=== PATIENT | female | born 1935 | race Caucasian/White ===

== ENCOUNTER 2018-05-11 07:04 | Inpatient (IN) | payer MEDICARE ==
[~2018-05-11] VITALS: Ht 165.1 cm; Wt 69.0 kg
[2018-05-11] MEDS ORDERED: FENTANYL PF 100 MCG/2ML ONE ×2 (07:43→19:19)
[2018-05-11] MEDS ORDERED: ONDANSETRON ODT 4 MG ONE (07:44)
[2018-05-11 07:45] LABS: BASOPHILS # (AUTO) 0.04 x10^3/uL (0-0.1); BASOPHILS % (AUTO) 1 % (0-1); EOSINOPHILS # (AUTO) 0.04 x10^3/uL (0-0.4); EOSINOPHILS % (AUTO) 1 % (1-7); LYMPHOCYTES # (AUTO) 1.95 x10^3/uL (1-3.4); LYMPHOCYTES % (AUTO) 24 % (22-44); MD NO; MEAN CORPUSCULAR HEMOGLOBIN 30.8 pg (27.0-34.8); MEAN CORPUSCULAR HGB CONC 32.9 g/dL (32.4-35.8); MEAN CORPUSCULAR VOLUME 93.7 fL (80-100); MEAN PLATELET VOLUME 7.9 fL (7.4-10.4); MONOCYTES % (AUTO) 4 % (2-9); NEUTROPHILS # (AUTO) 5.97 x10^3/uL (1.8-6.8); NEUTROPHILS % (AUTO) 72 % (42-75); PLATELET COUNT 198 x10^3/uL (130-400); RED BLOOD COUNT 3.82 x10^6/uL (3.82-5.3); RED CELL DISTRIBUTION WIDTH 14.1 % (9.6-15.2)
[2018-05-11 07:53] LABS: ALBUMIN 3.3 g/dL (3.4-5.0); ANION GAP 6 mmol/L (5-15); CALCIUM 8.3 mg/dL (8.5-10.1); CHLORIDE 109 mmol/L (98-107); CREATININE 0.83 mg/dL (0.55-1.02)
[2018-05-11] MEDS ORDERED: FENTANYL PF 100 MCG/2ML IV ONE (08:00)
[2018-05-11] MEDS ORDERED: ONDANSETRON ODT 4 MG PO ONE (08:00)
[2018-05-11] MEDS ORDERED: HYDROmorphone 2 MG/ML, 1ML ONE (08:46)
[2018-05-11] MEDS ORDERED: HYDROmorphone 1 MG/ML, 1ML IV ONE (09:00)
[2018-05-11] MEDS ORDERED: HYDROmorphone 2 MG/ML, 1ML IV ONE (09:00)
[2018-05-11] MEDS ORDERED: BLOOD PRESSURE MED PO (09:33)
[2018-05-11] MEDS ORDERED: BLOOD PRESSURE MED PEG (09:33)
[2018-05-11] MEDS ORDERED: [UNRECOGNIZED DRUG - REMARK] PO (09:33)
[2018-05-11 11:42] VITALS: BP 124/62
[2018-05-11] MEDS ORDERED: NS + 20MEQ KCL 1,000 ML IV SCH (11:46)
[2018-05-11] MEDS ORDERED: ENALAPRILAT 1.25 MG/ML, 2ML IVPush PRN (12:00)
[2018-05-11] MEDS ORDERED: ONDANSETRON 2MG/ML, 2ML IVPush PRN (12:00)
[2018-05-11] MEDS ORDERED: ACETAMINOPHEN 325 MG TABLET PO PRN (12:00)
[2018-05-11] MEDS ORDERED: HYDROcodone/APAP 5/325 TABLET PO PRN (12:00)
[2018-05-11] MEDS: morphine SULFATE 10 MG/ML, 1ML IVPush PRN ×2 (12:13→18:23)
[2018-05-11 12:21] LABS: INTERNATIONAL NORMALIZED RATIO 1.06 (0.93-1.1); PROTHROMBIN TIME 10.9 Seconds (9.6-11.5)
[2018-05-11] MEDS ORDERED: CITA10TA8 PO (13:46)
[2018-05-11] MEDS ORDERED: DONE10TA14 PO (13:46)
[2018-05-11] MEDS ORDERED: AMLO5TAB2 PO (13:47)
[2018-05-11 14:56] VITALS: BP 129/66
[2018-05-11] MEDS ORDERED: NEOSPORIN OINT, 15GM ONE (18:28)
[2018-05-11] MEDS ORDERED: MORPHINE SULFATE 4 MG/ML, 1ML ONE (19:17)
[2018-05-11] MEDS ORDERED: LABETALOL 5MG/ML, 20ML IV PRN (19:30)
[2018-05-11] MEDS ORDERED: hydrALAzine 20 MG/ML, 1ML IV PRN (19:30)
[2018-05-11] MEDS ORDERED: FENTANYL PF 100 MCG/2ML IV PRN (19:30)
[2018-05-11] MEDS ORDERED: ONDANSETRON ODT 8 MG PO PRN (19:30)
[2018-05-11] MEDS ORDERED: OXYcodone 5 MG/5 ML ORAL.SOL UDC PO PRN (19:30)
[2018-05-11] MEDS ORDERED: HYDROmorphone 1 MG/ML, 1ML IV PRN (19:30)
[2018-05-11] MEDS ORDERED: MORPHINE SULFATE 4 MG/ML, 1ML IVPush PRN (19:30)
[2018-05-11] MEDS ORDERED: morphine SULFATE 10 MG/ML, 1ML IVPush ONE (19:30)
[2018-05-11] MEDS ORDERED: PROMETHAZINE 12.5 MG SUPP PR PRN (19:30)
[2018-05-11] MEDS ORDERED: DEXAMETHASONE 4 MG/ML, 1ML ONE (19:45)
[2018-05-11] MEDS ORDERED: PROPOFOL 10 MG/ML, 20ML ONE (19:51)
[2018-05-11] MEDS ORDERED: CEFAZOLIN 1,000 MG ONE ×2 (19:52)
[2018-05-11] MEDS ORDERED: ONDANSETRON 2MG/ML, 2ML ONE (19:59)
[2018-05-11 21:45] VITALS: BP 132/67
[2018-05-11] MEDS: AMLODIPINE 5 MG TABLET PO SCH (22:07)
[2018-05-11 23:44] VITALS: BP 116/67
[2018-05-12] MEDS: CEFAZOLIN PMX 2GM/50ML 50 ML IVPB SCH ×2 (03:27→11:01)
[2018-05-12 04:00] VITALS: BP 123/71
[2018-05-12 05:44] LABS: BASOPHILS # (AUTO) 0.01 x10^3/uL (0-0.1); BASOPHILS % (AUTO) 0 % (0-1); EOSINOPHILS % (AUTO) 0 % (1-7); LYMPHOCYTES # (AUTO) 0.68 x10^3/uL (1-3.4); LYMPHOCYTES % (AUTO) 10 % (22-44); MD NO; MEAN CORPUSCULAR HEMOGLOBIN 31.9 pg (27.0-34.8); MEAN CORPUSCULAR HGB CONC 33.7 g/dL (32.4-35.8); MEAN CORPUSCULAR VOLUME 94.6 fL (80-100); MEAN PLATELET VOLUME 8.1 fL (7.4-10.4); MONOCYTES # (AUTO) 0.45 x10^3/uL (0.2-0.8); MONOCYTES % (AUTO) 6 % (2-9); NEUTROPHILS # (AUTO) 5.93 x10^3/uL (1.8-6.8); NEUTROPHILS % (AUTO) 84 % (42-75); PLATELET COUNT 137 x10^3/uL (130-400)
[2018-05-12 05:45] LABS: ANION GAP 6 mmol/L (5-15); CALCIUM 7.9 mg/dL (8.5-10.1); CHLORIDE 109 mmol/L (98-107)
[2018-05-12] MEDS: ENOXAPARIN 40 MG/0.4 ML SQ SCH (05:55)
[2018-05-12 05:58] LABS: CREATININE 0.69 mg/dL (0.55-1.02)
[2018-05-12 06:39] VITALS: BP 125/65
[2018-05-12] MEDS: CITALOPRAM 10 MG TABLET PO SCH (08:44)
[2018-05-12] MEDS: DONEPEZIL 10 MG TABLET PO SCH (08:44)
[2018-05-12] MEDS: ACETAMINOPHEN 325 MG TABLET PO SCH ×3 (08:44→22:05)
[2018-05-12] MEDS: CALCIUM CARBONATE 500 MG TABLET PO SCH ×2 (08:44→20:48)
[2018-05-12] MEDS ORDERED: morphine SULFATE 10 MG/ML, 1ML IVPush PRN (09:00)
[2018-05-12 13:12] VITALS: BP 111/64
[2018-05-12 18:40] VITALS: BP 108/55
[2018-05-12] MEDS: AMLODIPINE 5 MG TABLET PO SCH (20:48)
[2018-05-13 00:55] VITALS: BP 113/62
[2018-05-13] MEDS: ACETAMINOPHEN 325 MG TABLET PO SCH ×4 (04:13→23:34)
[2018-05-13 04:55] LABS: BASOPHILS # (AUTO) 0.02 x10^3/uL (0-0.1); BASOPHILS % (AUTO) 0 % (0-1); EOSINOPHILS # (AUTO) 0.09 x10^3/uL (0-0.4); EOSINOPHILS % (AUTO) 1 % (1-7); LYMPHOCYTES # (AUTO) 1.81 x10^3/uL (1-3.4); LYMPHOCYTES % (AUTO) 26 % (22-44); MD NO; MEAN CORPUSCULAR HEMOGLOBIN 32.2 pg (27.0-34.8); MEAN CORPUSCULAR VOLUME 94.8 fL (80-100); MEAN PLATELET VOLUME 8.9 fL (7.4-10.4); MONOCYTES # (AUTO) 0.65 x10^3/uL (0.2-0.8); MONOCYTES % (AUTO) 9 % (2-9); NEUTROPHILS # (AUTO) 4.32 x10^3/uL (1.8-6.8); NEUTROPHILS % (AUTO) 63 % (42-75); PLATELET COUNT 121 x10^3/uL (130-400); RED BLOOD COUNT 2.75 x10^6/uL (3.82-5.3)
[2018-05-13] MEDS: ALENDRONATE 10 MG TABLET PO SCH (06:41)
[2018-05-13] MEDS: ENOXAPARIN 40 MG/0.4 ML SQ SCH (06:41)
[2018-05-13 08:01] VITALS: BP 125/61
[2018-05-13] MEDS: DONEPEZIL 10 MG TABLET PO SCH (08:48)
[2018-05-13] MEDS: CITALOPRAM 10 MG TABLET PO SCH (08:52)
[2018-05-13] MEDS: CALCIUM CARBONATE 500 MG TABLET PO SCH ×2 (08:54→21:11)
[2018-05-13 14:20] VITALS: BP 138/65
[2018-05-13 20:01] VITALS: BP 130/74
[2018-05-13] MEDS: AMLODIPINE 5 MG TABLET PO SCH (21:11)
[2018-05-14 01:56] VITALS: BP 122/70
[2018-05-14 05:10] LABS: BASOPHILS # (AUTO) 0.04 x10^3/uL (0-0.1); BASOPHILS % (AUTO) 1 % (0-1); EOSINOPHILS # (AUTO) 0.25 x10^3/uL (0-0.4); EOSINOPHILS % (AUTO) 4 % (1-7); LYMPHOCYTES # (AUTO) 1.99 x10^3/uL (1-3.4); LYMPHOCYTES % (AUTO) 30 % (22-44); MD NO; MEAN CORPUSCULAR HEMOGLOBIN 31.3 pg (27.0-34.8); MEAN CORPUSCULAR HGB CONC 32.9 g/dL (32.4-35.8); MEAN PLATELET VOLUME 8.6 fL (7.4-10.4); MONOCYTES % (AUTO) 9 % (2-9); NEUTROPHILS # (AUTO) 3.69 x10^3/uL (1.8-6.8); NEUTROPHILS % (AUTO) 56 % (42-75); PLATELET COUNT 127 x10^3/uL (130-400); RED BLOOD COUNT 2.79 x10^6/uL (3.82-5.3)
[2018-05-14 05:21] LABS: IRON LEVEL 38 mcg/dL (50-170)
[2018-05-14 05:47] LABS: % IRON SATURATION 22 % (20-55); TOTAL IRON BINDING CAPACITY 176 mcg/dL (250-450)
[2018-05-14 05:49] LABS: FOLATE LEVEL > 20.0 ng/mL (3.1-17.5)
[2018-05-14] MEDS: ENOXAPARIN 40 MG/0.4 ML SQ SCH (05:49)
[2018-05-14] MEDS: ALENDRONATE 10 MG TABLET PO SCH (05:49)
[2018-05-14] MEDS: ACETAMINOPHEN 325 MG TABLET PO SCH ×3 (05:49→18:38)
[2018-05-14 08:32] VITALS: BP 123/69
[2018-05-14] MEDS: DONEPEZIL 10 MG TABLET PO SCH (09:52)
[2018-05-14] MEDS: CALCIUM CARBONATE 500 MG TABLET PO SCH ×2 (09:52→20:24)
[2018-05-14] MEDS: CITALOPRAM 10 MG TABLET PO SCH (09:52)
[2018-05-14 14:04] VITALS: BP 135/57
[2018-05-14 18:43] VITALS: BP 135/71
[2018-05-14] MEDS: AMLODIPINE 5 MG TABLET PO SCH (20:24)
[2018-05-15 01:09] VITALS: BP 112/60
[2018-05-15] MEDS: ACETAMINOPHEN 325 MG TABLET PO SCH ×3 (02:00→14:00)
[2018-05-15] MEDS: ENOXAPARIN 40 MG/0.4 ML SQ SCH (05:52)
[2018-05-15] MEDS: ALENDRONATE 10 MG TABLET PO SCH (05:52)
[2018-05-15 07:28] VITALS: BP 145/69
[2018-05-15] MEDS: DONEPEZIL 10 MG TABLET PO SCH (09:15)
[2018-05-15] MEDS: CALCIUM CARBONATE 500 MG TABLET PO SCH (09:15)
[2018-05-15] MEDS: CITALOPRAM 10 MG TABLET PO SCH (09:18)
[2018-05-15] MEDS ORDERED: ACET325T14 PO (10:56)
[2018-05-15] MEDS ORDERED: ASPI-496 PO (10:56)
[2018-05-15] MEDS ORDERED: ALEN10TA6 PO (10:56)
[2018-05-15] MEDS ORDERED: CALC-666 PO (10:56)
[2018-05-15 12:31] VITALS: BP 148/71
== END 2018-05-15 17:22 | DRG 481 ==
LOC: ED 09:39 → EDIP 10:14 → 4NOR 11:05
PROVIDERS: ADMIT Hospitalist; ATTEND Hospitalist
PROC: 0QH934Z Insertion of Internal Fixation Device into Left Femoral Shaft, Percutaneous Approach (ICD-10-PCS; principal; 2018-05-11 19:30)
DX: S72.002A Fracture of unspecified part of neck of left femur, initial encounter for closed fracture (principal); S42.202A Unspecified fracture of upper end of left humerus, initial encounter for closed fracture; W18.30XA Fall on same level, unspecified, initial encounter; W18.39XA Other fall on same level, initial encounter; Y93.89 Activity, other specified; Y92.89 Other specified places as the place of occurrence of the external cause; Y99.8 Other external cause status; D64.9 Anemia, unspecified; F03.90 Unspecified dementia, unspecified severity, without behavioral disturbance, psychotic disturbance, mood disturbance, and anxiety; I11.9 Hypertensive heart disease without heart failure; Z66 Do not resuscitate; Z85.118 Personal history of other malignant neoplasm of bronchus and lung
CPT/HCPCS: 36415; 76000; 80048; 82040; 82274; 82607; 82746; 83540; 83550; 83735; 84100; 84443; 85025; 85610; 93005; 96374; 96375; C1713; J0690; J1100; J1170; J1650; J2405; J2704; J3010; J3480; Q0162; J2270

== ENCOUNTER 2019-10-18 04:36 | Observation (INO) | payer MEDICARE ==
[~2019-10-18] VITALS: Ht 172.7 cm; Wt 76.6 kg
[~2019-10-18 04:36] MED LIST: ACET325T14 PO; ALEN10TA7 PO; AMLO-150 PO; ASPI-496 PO; BLOOD PRESSURE MED PEG; BLOOD PRESSURE MED PO; CALC-666 PO; CITA10TA8 PO; DONE10TA14 PO; [UNRECOGNIZED DRUG - REMARK] PO
--- NOTE | 2019-10-18 04:55 | NUR ---
PT RESTING QUIETLY, DENIES PAIN POST FENTANYL/ZOFRAN GIVEN BY EMS. WHEN PROVIDER IN TO EVALUATE, PT DOES NOT RECALL WHY SHE IS IN ED. PT DOES HAVE TENDERNESS TO PALPATION TO LEFT LOWER BACK, DENIES PAIN AT REST. WILL CONTINUE TO MONITOR.
--- NOTE | 2019-10-18 05:20 | NUR ---
PT HAS BEEN UP OUT OF ROOM TWICE TO ASK ABOUT DISPOSITION. DOES NOT RECALL WHY SHE IS IN ED. PT IS PLEASANTLY RE-DIRECTABLE TO ROOM. AMBULATES WELL WITHOUT ASSISTANCE.
--- NOTE | 2019-10-18 05:30 | NUR ---
PT CLEARED FOR DISCHARGE AND DAUGHTER CATRACHITO CONTACTED.
[2019-10-18] MEDS ORDERED: SERT50TA28 PO (05:31)
--- NOTE | 2019-10-18 05:40 | NUR ---
DAUGHTER ARRIVES TO ED STATING PT HAD FX VERTEBRAE APPROX 3 WEEKS AGO. PT HAS BEEN DOING WELL UP UNTIL LAST 3 DAYS WHEN PT HAS BEEN C/O INCREASED PAIN. PT DOES NOT RECALL INITIAL INJURY OR PAIN EPISODES SINCE. UNSURE OF RE-INJURY. PROVIDER NOTIFIED.
--- NOTE | 2019-10-18 06:15 | NUR ---
DURING X-RAY, PT STARTLED AND THIS APPEARS TO HAVE SET OFF WAVES OF EPISODIC BACK PAIN CONSISTENT WITH MUSCLE SPASMS. PT UNABLE TO BE POSITIONED PROPERLY FOR REMAINDER OF X-RAY VIEWS DUE TO PAIN. PT RETURNED TO ROOM WITH CONTINUED EPISODES OF PAIN AND PROVIDER NOTIFIED.
--- NOTE | 2019-10-18 06:30 | NUR ---
MEDICATIONS ORDERED FOR PT'S BACK PAIN; IMAGING TO BE COMPLETED BY CT. DAUGHTER UPDATED ON PLAN OF CARE.
[2019-10-18] MEDS ORDERED: DIAZEPAM 5 MG/ML, 2ML ONE (06:34)
[2019-10-18] MEDS ORDERED: OXYcodone/APAP 5/325MG TABLET ONE (06:35)
--- NOTE | 2019-10-18 06:40 | NUR ---
PT TO CT. CONTINUES TO HAVE EPISODIC PAIN. MEDICATED WITH VALIUM WHILE IN CT.
[2019-10-18] MEDS ORDERED: OXYcodone/APAP 5/325MG TABLET PO ONE (07:00)
[2019-10-18] MEDS ORDERED: DIAZEPAM 5 MG/ML, 2ML IVPush ONE (07:00)
--- NOTE | 2019-10-18 07:00 | NUR ---
PT RETURNED TO ROOM. PT CALM AT THIS TIME. BEDSIDE REPORT GIVEN TO TYLER WILSON.
--- NOTE | 2019-10-18 07:00 | NUR ---
BEDSIDE REPORT FROM LUCILA SCOTT. PT MEDICATED PER JAN, UNABLE TO SIT UP DUE TO PAIN/CONTINUED MUSCLE SPASMS. FAMILY AT BEDSIDE. BOTH BEDRAILS UP. CALL LIGHT WITHIN REACH. NO NEEDS AT THIS TIME, AWAITING CT SCAN RESULTS.
--- NOTE | 2019-10-18 08:15 | NUR ---
PT RESTING IN [place], FAMILY AT BEDSIDE. STILL C/O PAIN WITH MOVEMENT AND MUSCLE SPASMS BUT COMFORTABLE AT REST WITHOUT MOVEMENT. PT TO BE ADMITTED, AWAITING BED ASSIGNMENT.
--- NOTE | 2019-10-18 08:55 | NUR ---
REPORT TO JT SCOTT, GIVEN NUMBER FOR [employer] TO OBTAIN BACK BRACE.
--- NOTE | 2019-10-18 08:57 | NUR ---
Report from Fransico
[2019-10-18] MEDS ORDERED: METHOCARBAMOL 500 MG TABLET PO PRN (09:00)
[2019-10-18] MEDS ORDERED: LIDODERM 5% PATCH TD PRN (09:00)
[2019-10-18] MEDS ORDERED: GABAPENTIN 300 MG CAPSULE PO PRN (09:00)
[2019-10-18] MEDS ORDERED: DOCUSATE 100 MG CAPSULE PO PRN (09:00)
[2019-10-18] MEDS ORDERED: HYDROcodone/APAP 5/325 TABLET PO PRN (09:00)
[2019-10-18] MEDS ORDERED: ONDANSETRON ODT 4 MG PO PRN (09:00)
[2019-10-18] MEDS ORDERED: BISACODYL 10 MG SUPP PR PRN (09:00)
[2019-10-18] MEDS ORDERED: ONDANSETRON 2MG/ML, 2ML IVPush PRN (09:00)
[2019-10-18] MEDS ORDERED: POLYETHYLENE GLYCOL 17 GM PACKET PO PRN (09:00)
[2019-10-18] MEDS ORDERED: morphine SULFATE 10 MG/ML, 1ML IVPush PRN (09:00)
[2019-10-18 09:16] LABS: BASOPHILS # (AUTO) 0.04 x10^3/uL (0-0.1); BASOPHILS % (AUTO) 1 % (0-1); EOSINOPHILS % (AUTO) 0 % (1-7); LYMPHOCYTES # (AUTO) 1.25 x10^3/uL (1-3.4); LYMPHOCYTES % (AUTO) 20 % (22-44); MD NO; MEAN CORPUSCULAR HEMOGLOBIN 31.9 pg (27.0-34.8); MEAN CORPUSCULAR HGB CONC 33.3 g/dL (32.4-35.8); MEAN CORPUSCULAR VOLUME 95.8 fL (80-100); MEAN PLATELET VOLUME 8.4 fL (7.4-10.4); MONOCYTES # (AUTO) 0.37 x10^3/uL (0.2-0.8); MONOCYTES % (AUTO) 6 % (2-9); NEUTROPHILS # (AUTO) 4.74 x10^3/uL (1.8-6.8); NEUTROPHILS % (AUTO) 74 % (42-75); PLATELET COUNT 191 x10^3/uL (130-400); RED BLOOD COUNT 3.89 x10^6/uL (3.82-5.3); RED CELL DISTRIBUTION WIDTH 14.4 % (9.6-15.2)
[2019-10-18 09:27] LABS: ANION GAP 8 mmol/L (5-15); CALCIUM 8.4 mg/dL (8.5-10.1); CHLORIDE 109 mmol/L (98-107); CREATININE 0.55 mg/dL (0.55-1.02)
--- NOTE | 2019-10-18 09:28 | NUR ---
REPORT TO CADY
[2019-10-18 10:00] VITALS: BP 135/53
[2019-10-18] MEDS: SODIUM CHLORIDE 0.9% 1,000 ML IV SCH ×2 (10:38→23:42)
[2019-10-18] MEDS: DONEPEZIL 10 MG TABLET PO SCH (10:54)
[2019-10-18] MEDS: CALCIUM CARBONATE 500 MG TABLET PO SCH ×2 (10:54→21:36)
[2019-10-18] MEDS: SERTRALINE 50MG TABLET PO SCH (10:54)
[2019-10-18] MEDS: ACETAMINOPHEN 325 MG TABLET PO SCH ×3 (10:54→21:37)
[2019-10-18] MEDS ORDERED: ERGOCALCIFEROL 50,000 UNIT CAPSULE PO SCH (11:00)
[2019-10-18 12:35] VITALS: BP 135/53
[2019-10-18 14:18] VITALS: BP 145/72
[2019-10-18] MEDS: POTASSIUM CHLORIDE 20 MEQ TAB.ER.PRT PO SCH (16:28)
[2019-10-18 20:18] VITALS: BP 147/71
[2019-10-18] MEDS: AMLODIPINE 5 MG TABLET PO SCH (21:37)
[2019-10-19 02:00] VITALS: BP 135/70
[2019-10-19] MEDS: ACETAMINOPHEN 325 MG TABLET PO SCH ×5 (03:00→21:27)
[2019-10-19 06:13] LABS: CHLORIDE 110 mmol/L (98-107)
[2019-10-19 06:21] LABS: ANION GAP 7 mmol/L (5-15); CALCIUM 8.8 mg/dL (8.5-10.1); CREATININE 0.51 mg/dL (0.55-1.02)
[2019-10-19 07:20] VITALS: BP 129/66
[2019-10-19] MEDS: DONEPEZIL 10 MG TABLET PO SCH (09:27)
[2019-10-19] MEDS: SERTRALINE 50MG TABLET PO SCH (09:27)
[2019-10-19] MEDS: POTASSIUM CHLORIDE 20 MEQ TAB.ER.PRT PO SCH (09:27)
[2019-10-19] MEDS: CALCIUM CARBONATE 500 MG TABLET PO SCH ×2 (09:27→21:28)
[2019-10-19 14:33] VITALS: BP 145/61
[2019-10-19] MEDS: LIDODERM 5% PATCH TD SCH (14:55)
[2019-10-19] MEDS ORDERED: POTASSIUM CHLORIDE 20 MEQ TAB.ER.PRT PO ONE (15:30)
[2019-10-19] MEDS: ENOXAPARIN 40 MG/0.4 ML SQ SCH (17:52)
[2019-10-19] MEDS: SODIUM CHLORIDE 0.9% 1,000 ML IV SCH (17:52)
[2019-10-19 19:23] VITALS: BP 145/61
[2019-10-19] MEDS: AMLODIPINE 5 MG TABLET PO SCH (21:28)
[2019-10-19] MEDS: LIDODERM REMOVE PATCH NOTE XX SCH (21:28)
[2019-10-20 01:23] VITALS: BP 131/60
[2019-10-20] MEDS: ACETAMINOPHEN 325 MG TABLET PO SCH ×4 (03:00→21:15)
[2019-10-20 06:51] VITALS: BP 144/60
[2019-10-20] MEDS: DONEPEZIL 10 MG TABLET PO SCH (10:53)
[2019-10-20] MEDS: SERTRALINE 50MG TABLET PO SCH (10:53)
[2019-10-20] MEDS: CALCIUM CARBONATE 500 MG TABLET PO SCH ×2 (10:53→21:15)
[2019-10-20] MEDS: SODIUM CHLORIDE 0.9% 1,000 ML IV SCH ×2 (10:53→21:39)
[2019-10-20] MEDS: LIDODERM 5% PATCH TD SCH (12:30)
[2019-10-20] MEDS: ENOXAPARIN 40 MG/0.4 ML SQ SCH (15:03)
[2019-10-20 15:32] VITALS: BP 143/65
[2019-10-20 16:32] VITALS: BP 143/65
[2019-10-20 16:45] VITALS: BP 125/71
[2019-10-20 18:53] VITALS: BP 135/71
[2019-10-20] MEDS: AMLODIPINE 5 MG TABLET PO SCH (21:14)
[2019-10-21] MEDS: LIDODERM REMOVE PATCH NOTE XX SCH ×2 (00:30→23:45)
[2019-10-21 00:39] VITALS: BP 153/67
[2019-10-21] MEDS: ACETAMINOPHEN 325 MG TABLET PO SCH ×4 (03:00→20:31)
[2019-10-21 08:09] VITALS: BP 159/67
[2019-10-21] MEDS: DONEPEZIL 10 MG TABLET PO SCH (09:36)
[2019-10-21] MEDS: CALCIUM CARBONATE 500 MG TABLET PO SCH ×2 (09:36→20:32)
[2019-10-21] MEDS: SERTRALINE 50MG TABLET PO SCH (09:39)
[2019-10-21] MEDS: SODIUM CHLORIDE 0.9% 1,000 ML IV SCH (11:40)
[2019-10-21] MEDS: LIDODERM 5% PATCH TD SCH (12:30)
[2019-10-21 12:58] VITALS: BP 155/71
[2019-10-21] MEDS: ENOXAPARIN 40 MG/0.4 ML SQ SCH (15:23)
[2019-10-21 19:59] VITALS: BP 138/75
[2019-10-21] MEDS: AMLODIPINE 5 MG TABLET PO SCH (20:32)
[2019-10-22] MEDS: SODIUM CHLORIDE 0.9% 1,000 ML IV SCH (00:38)
[2019-10-22 01:37] VITALS: BP 142/12
[2019-10-22] MEDS: ACETAMINOPHEN 325 MG TABLET PO SCH ×3 (03:29→15:22)
[2019-10-22 07:39] VITALS: BP 147/62
[2019-10-22] MEDS: SERTRALINE 50MG TABLET PO SCH (09:23)
[2019-10-22] MEDS: DONEPEZIL 10 MG TABLET PO SCH (09:23)
[2019-10-22] MEDS: CALCIUM CARBONATE 500 MG TABLET PO SCH (09:24)
[2019-10-22] MEDS: LIDODERM 5% PATCH TD SCH (12:27)
[2019-10-22] MEDS ORDERED: LIDO700A20 TD (14:11)
[2019-10-22 14:21] VITALS: BP 158/71
[2019-10-22] MEDS: ENOXAPARIN 40 MG/0.4 ML SQ SCH (15:22)
== END 2019-10-22 17:55 | disposition home or self-care (01) ==
LOC: ED 07:09 → EDIP 08:07 → INTOOBSV 08:07 → EDIP 08:17 → UNDOADMIN 08:17 → 3N 09:40
PROVIDERS: ADMIT Internal Medicine; ATTEND Internal Medicine
DX: S32.020A Wedge compression fracture of second lumbar vertebra, initial encounter for closed fracture (principal); S32.030A Wedge compression fracture of third lumbar vertebra, initial encounter for closed fracture; F03.90 Unspecified dementia, unspecified severity, without behavioral disturbance, psychotic disturbance, mood disturbance, and anxiety; E55.9 Vitamin D deficiency, unspecified; I11.9 Hypertensive heart disease without heart failure; Z66 Do not resuscitate; Z85.118 Personal history of other malignant neoplasm of bronchus and lung; Z79.82 Long term (current) use of aspirin; Z79.899 Other long term (current) drug therapy; W18.39XA Other fall on same level, initial encounter; Y93.89 Activity, other specified; Y92.89 Other specified places as the place of occurrence of the external cause
CPT/HCPCS: 36415; 72131; 72148; 80048; 82306; 85025; 93005; 96372; 96374; 96375; 97162; 97164; 97166; 99284; G0378; J1650; J2405; J3360; J7030